=== PATIENT | male | born 1990 | race Caucasian/White ===

== ENCOUNTER 2017-08-07 09:10 | Emergency (ER) | payer OTHER ==
[~2017-08-07] VITALS: Ht 172.7 cm; Wt 93.0 kg
[~2017-08-07 09:10] MED LIST: ACET-6134 PO; ONDA4ODT1 PO
[2017-08-07 09:17] VITALS: BP 121/74
--- NOTE | 2017-08-07 11:45 | NUR ---
PATIENT LEFT WITHOUT BEING SEEN BY DR. MOLINA. NO FURTHER CARE PROVIDED FOR PATIENT.
== END 2017-08-07 11:45 | disposition left against medical advice (07) ==
LOC: MED 09:10
DX: R07.9 Chest pain, unspecified (principal); Z53.21 Procedure and treatment not carried out due to patient leaving prior to being seen by health care provider

== ENCOUNTER 2018-05-24 12:02 | Emergency (ER) | payer OTHER ==
[~2018-05-24] VITALS: Ht 172.7 cm; Wt 87.5 kg
[2018-05-24 12:05] VITALS: BP 113/70
--- NOTE | 2018-05-24 12:10 | NUR ---
PT AMBULATED TO BED 5. REPORT GIVEN TO SINA WELLS.
--- NOTE | 2018-05-24 12:12 | NUR ---
27YO M TO ER FOR C/O R CP. RIGHT UPPER CHEST PAIN RADIATING TO BACK STARTING YESTERDAY; WORSE WITH MOVEMENT OR DEEP INHALATION, DENIES INJURY; LUNGS CLEAR BILATERALLY, WILL CONTINUE TO MONITOR HX DENIES
--- NOTE | 2018-05-24 12:13 | NUR ---
EKG PERFORMED. SHOWN TO DR. SANTOS.
[2018-05-24 13:30] LABS: BASOPHILS # (AUTO) 0.1 K/uL (0.00-0.22); BASOPHILS % (AUTO) 1.1 % (0.0-2.0); EOSINOPHILS # (AUTO) 0.2 K/uL (0-0.4); EOSINOPHILS % (AUTO) 3.5 % (0.0-4.0); HEMATOCRIT 44.3 % (36-52); LYMPHOCYTES # (AUTO) 2.2 K/uL (2.0-11.5); LYMPHOCYTES % (AUTO) 32.1 % (20.5-51.1); MEAN CORPUSCULAR HEMOGLOBIN 29 pg (27-31); MEAN CORPUSCULAR HGB CONC 34 g/dL (33-37); MONOCYTES # (AUTO) 0.5 K/uL (0.8-1.0); MONOCYTES % (AUTO) 7.8 % (1.7-9.3); NEUTROPHILS # (AUTO) 3.8 K/uL (1.8-7.7); NEUTROPHILS % (AUTO) 55.5 % (42.2-75.2); PLATELET COUNT (AUTO) 244 K/uL (140-450); RED BLOOD CELL COUNT(AUTO) 5.09 MIL/uL (4.20-6.10); RED CELL DISTRIBUTION WIDTH 13.8 % (11.6-13.7); WHITE BLOOD COUNT (AUTO) 6.8 K/uL (4.8-10.8)
[2018-05-24 13:37] LABS: ANION GAP 12.1 (8-16); CARBON DIOXIDE 27.9 mmol/L (21-32); CREATININE 1.1 mg/dL (0.7-1.3)
[2018-05-24 13:43] LABS: ALBUMIN 3.8 g/dL (3.4-5.0); TOTAL BILIRUBIN 0.6 mg/dL (0.0-1.0)
[2018-05-24] MEDS ORDERED: IBUPROFEN 600 MG TAB PO ONE (13:55)
[2018-05-24] MEDS ORDERED: CYCLOBENZAPRINE 10 MG TAB PO ONE (13:55)
--- NOTE | 2018-05-24 14:15 | NUR ---
PT LYING IN BED IN NO APPEARENT DISTERESS
--- NOTE | 2018-05-24 16:14 | NUR ---
Patient discharged with v/s stable. Written and verbal after care instructions given and explained. Patient alert, oriented and verbalized understanding of instructions. Ambulatory with steady gait. All questions addressed prior to discharge. ID band removed. Patient advised to follow up with PMD. Rx of CYCLOBENZAPRINE, IBUPROFEN given. Patient educated on indication of medication including possible reaction and side effects. Opportunity to ask questions provided and answered.
[2018-05-24 16:27] VITALS: BP 134/80
== END 2018-05-24 16:14 | disposition home or self-care (01) ==
LOC: MED 12:02
DX: R07.89 Other chest pain (principal); J45.909 Unspecified asthma, uncomplicated; Z79.899 Other long term (current) drug therapy
CPT/HCPCS: 36415; 71045; 80053; 84484; 85025; 93005; 99285

== ENCOUNTER 2020-04-04 16:52 | Emergency (ER) | payer OTHER, SELFPAY ==
[~2020-04-04] VITALS: Ht 175.3 cm; Wt 103.0 kg
[~2020-04-04 16:52] MED LIST changes: +ONDA-24 PO; -ONDA4ODT1 PO
[2020-04-04] MEDS ORDERED: ACETAMINOPHEN EXTRA STRENGTH 500 MG TAB ONE (16:54)
[2020-04-04 16:55] VITALS: BP 140/79
[2020-04-04] MEDS ORDERED: ACETAMINOPHEN EXTRA STRENGTH 500 MG TAB PO ONE (16:55)
[2020-04-04] MEDS ORDERED: NACL 0.9% 1,000 ML IV ONE (17:10)
[2020-04-04] MEDS ORDERED: KETOROLAC 30 MG/ML VIAL IVP ONE (17:10)
[2020-04-04 17:24] LABS: BASOPHILS % (AUTO) 0.3 % (0.0-2.0); HEMATOCRIT 42.4 % (36-52); HEMOGLOBIN 14.8 g/dL (12.0-18.0); LYMPHOCYTES # (AUTO) 0.8 K/uL (2.0-11.5); LYMPHOCYTES % (AUTO) 9.9 % (20.5-51.1); MEAN CORPUSCULAR HEMOGLOBIN 30 pg (27-31); MEAN CORPUSCULAR HGB CONC 35 g/dL (33-37); MEAN CORPUSCULAR VOLUME 85.6 fL (80-94); MONOCYTES # (AUTO) 0.8 K/uL (0.8-1.0); MONOCYTES % (AUTO) 9.2 % (1.7-9.3); NEUTROPHILS # (AUTO) 6.9 K/uL (1.8-7.7); NEUTROPHILS % (AUTO) 80.6 % (42.2-75.2); PLATELET COUNT (AUTO) 233 K/uL (140-450); RED BLOOD CELL COUNT(AUTO) 4.96 MIL/uL (4.20-6.10); RED CELL DISTRIBUTION WIDTH 13.5 % (11.6-13.7); WHITE BLOOD COUNT (AUTO) 8.5 K/uL (4.8-10.8)
[2020-04-04 17:37] LABS: ALBUMIN 3.6 g/dL (3.4-5.0); ANION GAP 14.9 (8-16); CARBON DIOXIDE 28.2 mmol/L (21-32); CREATININE 1.1 mg/dL (0.6-1.3); POTASSIUM 3.1 mmol/L (3.5-5.1); TOTAL BILIRUBIN 0.7 mg/dL (0.0-1.0)
[2020-04-04 19:14] VITALS: BP 126/84
== END 2020-04-04 19:14 | disposition home or self-care (01) ==
LOC: EEVIPCON 16:52 → MED 16:52
DX: R50.9 Fever, unspecified (principal); J45.909 Unspecified asthma, uncomplicated; Z79.899 Other long term (current) drug therapy; Z20.828 Contact with and (suspected) exposure to other viral communicable diseases
CPT/HCPCS: 36415; 71045; 80053; 85025; 87635; 96374; 99284; J1885; J7030; Q0092

== ENCOUNTER 2022-03-08 09:48 | Emergency (ER) | payer SELFPAY ==
[~2022-03-08] VITALS: Ht 172.7 cm; Wt 101.6 kg
[~2022-03-08 09:48] MED LIST changes: +ACET-10509 PO; -ACET-6134 PO; +ONDA-188 PO; -ONDA-24 PO
[2022-03-08 09:59] VITALS: BP 117/75
--- NOTE | 2022-03-08 10:08 | NUR ---
31 Y/O MALE TRIPPED AND FELL OUTSIDE HIS HOME OVER A SPEED BUMP WHILE TAKING OUT THE TRASH. PATIENT HAS LEFT LATERAL MALLEOLUS SWELLING AND PAIN. PATIENT DENIES ANY FOOT PAIN
[2022-03-08] MEDS ORDERED: KETOROLAC 60 MG/2 ML VIAL IM ONE (10:10)
[2022-03-08] MEDS ORDERED: IBUP-2213 PO (11:33)
[2022-03-08] MEDS ORDERED: ACET-8386 PO (11:33)
--- NOTE | 2022-03-08 11:47 | NUR ---
Patient discharged with v/s stable. Written and verbal after care instructions given and explained. Patient alert, oriented and verbalized understanding of instructions. Ambulatory with steady gait. All questions addressed prior to discharge. ID band removed. Patient advised to follow up with PMD. Rx of ibuprofen and hydrocodon-acetaminophen given. Patient educated on indication of medication including possible reaction and side effects. Opportunity to ask questions provided and answered.
[2022-03-08 11:49] VITALS: BP 117/75
== END 2022-03-08 11:49 | disposition home or self-care (01) ==
LOC: MED 09:48
DX: S93.402A Sprain of unspecified ligament of left ankle, initial encounter (principal); J45.909 Unspecified asthma, uncomplicated; Z79.899 Other long term (current) drug therapy; X50.1XXA Overexertion from prolonged static or awkward postures, initial encounter; Y93.89 Activity, other specified; Y92.89 Other specified places as the place of occurrence of the external cause; Y99.8 Other external cause status
CPT/HCPCS: 73610; 96372; 99283; J1885